=== PATIENT | male | born 1995 | race Caucasian/White ===

== ENCOUNTER 2016-10-23 20:59 | Emergency (ER) | payer OTHER ==
[2016-10-23 21:43] VITALS: BP 107/55; PULSE 104; TEMP 99.3; BMI 25.0
[2016-10-23] MEDS ORDERED: IBUPROFEN 400 MG TABLET (FP) PO ONE ×2 (22:11→22:28)
--- NOTE | 2016-10-23 23:01 | PDOC ---
History of Present Illness - General Chief Complaint: Sore Throat Stated Complaint: FEVER/SORE THROAT Time Seen by Provider: 10/23/16 21:48 History Source: Patient Exam Limitations: No Limitations - History of Present Illness Initial Comments: 10/23/16 22:58 20yo Male patient presents to ED c/o fever (104.0) yesterday night. Today chills , sore throat and h/a presented. He states he vomited x 2. Took Tylenol for fever. He denies any other complaints at this time. Timing/Duration: reports: yesterday Possible Cause: Yes: no prior episodes Modifying Factors: worse with: activity, albuterol inhaler, albuterol nebulizer , antibiotics, coughing, lying down, oxygen, rest, other Associated Symptoms: reports: fever/chills, headache, sore throat Past History - Travel Traveled outside of the country in the last 30 days: No Close contact w/someone who was outside of country & ill: No - Past Medical History Allergies/Adverse Reactions: Allergies Allergy/AdvReac Type Severity Reaction Status Date / Time chocolate flavor Allergy Verified 10/23/16 21:41 Penicillins Allergy Verified 10/23/16 21:41 PEANUTS Allergy Severe Itching Uncoded 10/23/16 21:41 SHRIMP Allergy Severe Itching Uncoded 10/23/16 21:41 Home Medications: Ambulatory Orders Azithromycin [Zithromax -] 250 mg PO DAILY #4 tablet 10/23/16 Asthma: Yes - Immunization History Immunization Up to Date: Yes - Psycho/Social/Smoking Cessation Hx Anxiety: Yes Suicidal Ideation: No Smoking Status: No Smoking History: Never smoked Have you smoked in the past 12 months: No Number of Cigarettes Smoked Daily: 4 If you are a former smoker, when did you quit?: aug 2013 Information on smoking cessation initiated: No Hx Alcohol Use: No Drug/Substance Use Hx: No Substance Use Type: None Respiratory Specific PMHX - Complaint Specific PMHX Angina: No Bronchitis: No Pneumonia: No Pulmonary Embolus: No TB (Tuberculosis): No Review of Systems - Review of Systems Able to Perform ROS?: Yes Is the patient limited Pashto proficient: No Constitutional: Yes: Chills, Fever HEENTM: Yes: Throat Pain. No: Nose Congestion, Throat Swelling, Difficulty Swallowing, Mouth Swelling Respiratory: No: Cough, Shortness of Breath, Stridor, Wheezing Cardiac (ROS): No: Chest Pain, Edema, Lightheadedness, Palpitations, Chest Tightness ABD/GI: Yes: Nausea, Vomiting. No: Diarrhea, Poor Appetite, Poor Fluid Intake : No: Dysuria Musculoskeletal: No: Back Pain Integumentary: No: Bruising, Erythema, Rash Neurological: Yes: Headache. No: Seizure, Ataxia, Dizziness All Other Systems: Reviewed and Negative *Physical Exam - Vital Signs Last Vital Signs Temp Pulse Resp BP Pulse Ox 99.3 F 104 H 20 107/55 97 10/23/16 21:41 10/23/16 21:41 10/23/16 21:41 10/23/16 21:41 10/23/16 21:41 - Physical Exam General Appearance: Yes: Nourished, Appropriately Dressed. No: Apparent Distress, Mild Distress, Moderate Distress, Severe Distress HEENT: positive: EOMI, FANTASMA, Normal ENT Inspection, Normal Voice, Symmetrical, TMs Normal, Pharynx Normal. negative: Pharyngeal Erythema, Tonsillar Exudate, Tonsillar Erythema, Nasal Congestion, Rhinorrhea, Sinus Tenderness, TM Bulging, TM Dull, TM Erythema Neck: positive: Trachea midline, Supple. negative: Lymphadenopathy (R), Lymphadenopathy (L) Respiratory/Chest: positive: Lungs Clear, Normal Breath Sounds. negative: Respiratory Distress, Accessory Muscle Use, Labored Respiration, Rapid RR Cardiovascular: positive: Regular Rhythm, Regular Rate. negative: Edema, JVD, Murmur Gastrointestinal/Abdominal: positive: Normal Bowel Sounds, Soft. negative: Distended, Guarding, Rebound, Tenderness Musculoskeletal: positive: Normal Inspection. negative: CVA Tenderness Extremity: positive: Normal Capillary Refill, Normal Inspection, Normal Range of Motion. 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 NML intact, Fully Oriented, Alert, Normal Mood/ Affect, Normal Response, Motor Strength 5/5 ED Treatment Course - ADDITIONAL ORDERS Additional order review: 10/23/16 22:25 Influenza Types A,B Antigen (AGAPITO) - Final Nasopharyngeal Swab - Final 10/23/16 22:25 Group A Strep Rapid Antigen - Final Throat - Medications Given in the ED: ED Medications Discontinued Medications Generic Name Dose Route Start Last Admin Trade Name Freq PRN Reason Stop Dose Admin Ibuprofen 800 mg 10/23/16 22:11 10/23/16 22:29 Motrin - PO 10/23/16 22:12 800 mg ONCE ONE Administration *DC/Admit/Observation/Transfer Diagnosis at time of Disposition: Acute viral pharyngitis - Discharge Dispostion Disposition: HOME Condition at time of disposition: Stable Admit: No - Prescriptions Prescriptions: Azithromycin [Zithromax -] 250 mg PO DAILY #4 tablet - Patient Instructions Printed Discharge Instructions: Viral Pharyngitis Additional Instructions: FOLLOW UP WITH YOUR PRIMARY CARE PROVIDER. TAKE MEDICATIONS PRESCRIBED. RETURN IF SYMPTOMS WORSEN OR ANY CONCERNS FOR FURTHER EVALUATION. MOTRIN OR TYLENOL FOR PAIN NEEDED. Print Language: AMHARIC
[2016-10-23] MEDS ORDERED: AZITHROMYCIN 250 MG TABLET (FP) PO ONE (23:45)
[2016-10-23] MEDS ORDERED: AZITHROMYCIN 250 MG TABLET (FP) ONE (23:48)
== END 2016-10-23 23:50 | disposition home or self-care (01) ==
LOC: JER 20:59
DX: J02.9 Acute pharyngitis, unspecified (principal)
CPT/HCPCS: 87070; 87430; 87804; 99281-25

== ENCOUNTER 2017-12-29 11:55 | Emergency (ER) | payer OTHER ==
[2017-12-29 12:10] VITALS: BP 137/88; PULSE 92; TEMP 98.8; BMI 20.7
[2017-12-29] MEDS ORDERED: ONDANSETRON 4 MG/2 ML VIAL IVPUSH ONE (12:13)
[2017-12-29] MEDS ORDERED: SODIUM CHLORIDE 1,000 ML IV STA ×2 (12:13→13:32)
[2017-12-29] MEDS ORDERED: PANTOPRAZOLE SODIUM 40 MG VIAL IVPUSH ONE (12:13)
--- NOTE | 2017-12-29 12:13 | PDOC ---
History of Present Illness - General Chief Complaint: Coffee Ground Emesis Stated Complaint: VOMITING Time Seen by Provider: 12/29/17 12:04 History Source: Patient Exam Limitations: No Limitations - History of Present Illness Initial Comments: 22 yo M history heavy alcohol use (used to drink 12 beers per day, but has stopped for the past month) presents with 3 week history of nausea, vomiting with coffee ground emesis. He has been evaluated at [facility] for the same, was able to schedule an appointment with a search manager on January 03. He has been taking protonix and zofran at home, but ran out of zofran. He has been vomiting all morning and was unable to keep anything down this morning. Denies fever, diarrhea, abd pain. Past History - Past Medical History Allergies/Adverse Reactions: Allergies Allergy/AdvReac Type Severity Reaction Status Date / Time chocolate flavor Allergy Verified 10/23/16 21:41 Penicillins Allergy Verified 10/23/16 21:41 PEANUTS Allergy Severe Itching Uncoded 10/23/16 21:41 SHRIMP Allergy Severe Itching Uncoded 10/23/16 21:41 Home Medications: Ambulatory Orders Azithromycin [Zithromax -] 250 mg PO DAILY #4 tablet 10/23/16 Ondansetron [Zofran Odt -] 4 mg SL TID PRN #21 od.tablet 12/29/17 Asthma: Yes COPD: No - Immunization History Immunization Up to Date: Yes - Suicide/Smoking/Psychosocial Hx Smoking Status: No Smoking History: Former smoker Have you smoked in the past 12 months: Yes Number of Cigarettes Smoked Daily: 4 If you are a former smoker, when did you quit?: T Information on smoking cessation initiated: Yes 'Breaking Loose' booklet given: 12/29/17 Hx Alcohol Use: Yes (12 PACK PER DAY) Drug/Substance Use Hx: Yes (HX OF DRUG USE, PILLS,HERION,COCAINE) Substance Use Type: Alcohol Review of Systems - Review of Systems Able to Perform ROS?: Yes Comments:: GENERAL/CONSTITUTIONAL: No fever or chills. No weakness. HEAD, EYES, EARS, NOSE AND THROAT: No change in vision. No ear pain or discharge. No sore throat. CARDIOVASCULAR: No chest pain or shortness of breath. RESPIRATORY: No cough, wheezing, or hemoptysis. GASTROINTESTINAL: +Nausea, vomiting. No diarrhea or constipation. GENITOURINARY: No dysuria, frequency, or change in urination. MUSCULOSKELETAL: No joint or muscle swelling or pain. No neck or back pain. SKIN: No rash NEUROLOGIC: No headache, vertigo, loss of consciousness, or change in strength/ sensation. ENDOCRINE: No increased thirst. No abnormal weight change. HEMATOLOGIC/LYMPHATIC: No anemia, easy bleeding, or history of blood clots. ALLERGIC/IMMUNOLOGIC: No hives or skin allergy. *Physical Exam - Vital Signs Last Vital Signs Temp Pulse Resp BP Pulse Ox 98.8 F 92 H 20 137/88 98 12/29/17 11:56 12/29/17 11:56 12/29/17 11:56 12/29/17 11:56 12/29/17 11:56 - Physical Exam Comments: GENERAL: Awake, alert, and fully oriented, in no acute distress HEAD: No signs of trauma EYES: PERRLA, EOMI, sclera anicteric, conjunctiva clear ENT: Auricles normal inspection, hearing grossly normal, nares patent, oropharynx clear without exudates. Dry mucosa NECK: Normal ROM, supple, no lymphadenopathy, JVD, or masses LUNGS: Breath sounds equal, clear to auscultation bilaterally. No wheezes, and no crackles HEART: Regular rate and rhythm, normal S1 and S2, no murmurs, rubs or gallops ABDOMEN: Soft, +mild diffuse tenderness, normoactive bowel sounds. No guarding , no rebound. No masses EXTREMITIES: Normal range of motion, no edema. No clubbing or cyanosis. No cords, erythema, or tenderness NEUROLOGICAL: Cranial nerves II through XII grossly intact. Normal speech, normal gait SKIN: Warm, Dry, normal turgor, no rashes or lesions noted. ED Treatment Course - LABORATORY CBC & Chemistry Diagram: 12/29/17 12:40 12/29/17 12:40 Medical Decision Making - Medical Decision Making 12/29/17 14:25 Pt able to tolerate PO challenge. He states he is feeling better. Stable for DC home. He has GI appointment in 5 days, I advised him to be sure to keep it. *DC/Admit/Observation/Transfer Diagnosis at time of Disposition: Nausea and vomiting Qualifiers: Vomiting type: unspecified Vomiting Intractability: non-intractable Qualified Code(s): R11.2 - Nausea with vomiting, unspecified - Discharge Dispostion Disposition: HOME Condition at time of disposition: Stable Decision to Admit order: No - Prescriptions Prescriptions: Ondansetron [Zofran Odt -] 4 mg SL TID PRN #21 od.tablet PRN Reason: Nausea And/Or Vomiting - Referrals - Patient Instructions Printed Discharge Instructions: DI for Vomiting -- Adult - Post Discharge Activity
[2017-12-29] MEDS ORDERED: ONDANSETRON 4 MG/2 ML VIAL ONE (12:35)
[2017-12-29] MEDS ORDERED: PANTOPRAZOLE SODIUM 40 MG VIAL ONE (12:36)
[2017-12-29 12:58] LABS: EOS % 0.5 % (0-4.5); HEMATOCRIT 48.9 % (35.4-49); HEMOGLOBIN 17.1 GM/dl (11.7-16.9); LYMPH % 8.8 % (8-40); MCH 29.2 pg (25.7-33.7); MCHC 34.9 g/dl (32.0-35.9); MEAN CELL VOLUME 83.6 fl (80-96); MEAN PLT VOLUME 7.8 fl (7.5-11.1); MONO % 5.3 % (3.8-10.2); NEUT % 84.4 % (42.8-82.8); PLATELET COUNT 279 K/MM3 (134-434); RBC 5.85 M/mm3 (4.00-5.60); RDW 12.9 % (11.9-15.9)
[2017-12-29 13:19] LABS: ALBUMIN 4.9 g/dl (3.5-5.0); ALK PHOS 72 U/L (32-92); ANION GAP 6 (8-16); BILIRUBIN,TOTAL 1.2 mg/dl (0.2-1.0); BLOOD UREA NITROGEN 15 mg/dl (7-18); CALCIUM 9.5 mg/dl (8.4-10.2); CHLORIDE 100 mmol/L (98-107); CO2 32 mmol/L (22-28); CREATININE 1.1 mg/dl (0.6-1.3); GLUCOSE,RANDOM 101 mg/dl (74-106); POTASSIUM 3.7 mmol/L (3.5-5.1); SGOT/AST 21 U/L (10-42); SGPT/ALT 18 U/L (10-40); SODIUM 138 mmol/L (136-145)
[2017-12-29 13:25] LABS: INR 1.17 (0.82-1.09); PROTHROMBIN TIME (PATIENT) 13.1 SEC (10.2-13.0)
[2017-12-29 13:57] LABS: LIPASE 105 U/L (73-393)
== END 2017-12-29 14:44 | disposition home or self-care (01) ==
LOC: FER 11:55
PROC: 3E033GC Introduction of Other Therapeutic Substance into Peripheral Vein, Percutaneous Approach (ICD-10-PCS; principal; 2017-12-29)
PROC: 3E0337Z Introduction of Electrolytic and Water Balance Substance into Peripheral Vein, Percutaneous Approach (ICD-10-PCS; 2017-12-29)
DX: R11.2 Nausea with vomiting, unspecified (principal); F10.21 Alcohol dependence, in remission; Z88.5 Allergy status to narcotic agent; Z91.010 Allergy to peanuts; Z91.013 Allergy to seafood; Z87.891 Personal history of nicotine dependence
CPT/HCPCS: 36415; 80053; 83690; 85025; 85610; 86850; 86900; 86901; 99282-25; J7030

== ENCOUNTER 2018-03-08 13:23 | Emergency (ER) | payer OTHER ==
[2018-03-08 13:42] VITALS: BP 125/72; PULSE 93; TEMP 99.1; BMI 22.7
[2018-03-08] MEDS ORDERED: PANTOPRAZOLE SODIUM 40 MG in SODIUM CHLORIDE 100 ML IVPB ONE (13:45)
[2018-03-08] MEDS ORDERED: ONDANSETRON 4 MG/2 ML VIAL IVPB ONE (13:45)
[2018-03-08] MEDS ORDERED: SODIUM CHLORIDE 1,000 ML IV STA (13:46)
--- NOTE | 2018-03-08 13:46 | PDOC ---
History of Present Illness - General Chief Complaint: Vomiting Blood Stated Complaint: VOMITING BLOOD Time Seen by Provider: 03/08/18 13:36 - History of Present Illness Initial Comments: 03/08/18 13:47 If complaint: Hematemesis History of present illness: Patient states that he awoke this morning, felt nauseated, threw up multiple times, noticing dark red blood with some clots. Similar episode 2 months ago, no specific diagnosis, treated in the emergency room and referred to a specialist, but did not follow-up. Also mild burning pain in the epigastrium. Consumes approximately 24 cans of beer each day after work. Has been drinking heavily for several years. Denies tobacco or nonprescription drugs. No other abdominal disease including liver disease, hepatitis, appendicitis, or cholecystitis. Review of systems: As noted above. In addition, bowel movements are normal, no diarrhea, no melena, medium brown in appearance. His urine however is dark in color but not bloody. No recent fever/chills, URI symptoms, sore throat, cough, chest pain, shortness of breath, visual or focal neurologic symptoms, unsteadiness of gait, lightheadedness, dizziness, or ataxia. No rashes. Claims that he eats normally, appetite being good, even after he drinks. Past medical history: Significant only for intermittent epigastric discomfort, dyspepsia, and hematemesis as noted above. No surgeries. 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 Physical exam: Alert and oriented well-developed well-nourished no acute distress cheerful and cooperative No pallor or icterus. No tremulousness PERRLA, fundi benign, ENT clear Neck supple without bruit mass or nodes Chest clear with full breath sounds bilaterally CV regular without murmur rub or gallop pulses full and symmetric no JVD or edema no bruits Abdomen nondistended. Bowel sounds normal. Soft without mass tenderness organomegaly. Specifically, the liver is not enlarged and there edges not palpated Extremities no CCE Neurological C2 to 12 intact. Strength full and symmetric. No focal sensory or motor deficits. Gait stable and unimpaired. No orthostatic hypotensive changes. No palmar erythema, telangiectasias, or asterixis Impression: Probable alcoholic gastritis with recurrent hematemesis, beginning this morning. No sign of hypovolemia. No sign of significant blood loss. No sign of liver toxicity on examination Plan: CBC, chemistries, and urinalysis. IV fluids, Protonix, and Zofran. Further evaluation and treatment depending on results Past History - Past Medical History Allergies/Adverse Reactions: Allergies Allergy/AdvReac Type Severity Reaction Status Date / Time Penicillins Allergy Severe Verified 03/08/18 13:27 chocolate flavor Allergy Mild Verified 03/08/18 13:25 PEANUTS Allergy Severe Itching Uncoded 03/08/18 13:26 SHRIMP Allergy Intermediate Itching Uncoded 03/08/18 13:27 Home Medications: Ambulatory Orders NK [No Known Home Medication] 03/08/18 Asthma: Yes COPD: No - Immunization History Immunization Up to Date: Yes - Suicide/Smoking/Psychosocial Hx Smoking Status: No Smoking History: Former smoker Have you smoked in the past 12 months: Yes Number of Cigarettes Smoked Daily: 4 If you are a former smoker, when did you quit?: T 'Breaking Loose' booklet given: 12/29/17 Hx Alcohol Use: Yes (12 PACK PER DAY) Drug/Substance Use Hx: Yes (HX OF DRUG USE, PILLS,HERION,COCAINE) Substance Use Type: Alcohol ED Treatment Course - LABORATORY CBC & Chemistry Diagram: 03/08/18 13:52 03/08/18 13:52 Medical Decision Making - Medical Decision Making 03/08/18 14:46 H&H are normal. LFTs are normal. Mildly elevated white count without sign of infection Patient is much improved after intravenous fluids, Zofran, and Protonix. There is no pain or burning in the epigastrium. There is been no further nausea or vomiting. Discharge with his mother, lengthy discussion with both regarding the dangers of alcohol, continue Protonix and follow up with seat trimmer as discussed *DC/Admit/Observation/Transfer Diagnosis at time of Disposition: Gastritis Qualifiers: Gastritis type: unspecified gastritis Chronicity: acute Gastritis bleeding: with bleeding Qualified Code(s): K29.01 - Acute gastritis with bleeding - Discharge Dispostion Disposition: HOME Condition at time of disposition: Stable Decision to Admit order: No - Referrals Referrals: Candido Caceres MD [Staff Physician] - 2 Days - Patient Instructions Printed Discharge Instructions: DI for Alcoholic Gastritis Additional Instructions: Slowly withdraw yourself from alcohol or you risk life-threatening bleeding or liver damage. Medication as prescribed See seat trimmer as recommended for follow-up. Return to the hospital if there is heavy bleeding or other signs of blood loss, such as lightheadedness, dizziness, chest pain, shortness of breath, or increased abdominal pain. - Post Discharge Activity
[2018-03-08] MEDS ORDERED: ONDANSETRON 4 MG/2 ML VIAL ONE (13:55)
[2018-03-08] MEDS ORDERED: PANTOPRAZOLE SODIUM 40 MG VIAL ONE (13:55)
[2018-03-08 14:12] LABS: URINE APPEARANCE Clear; URINE BILIRUBIN 1+ (NEGATIVE); URINE COLOR Amber; URINE GLUCOSE (UA) Negative (NEGATIVE); URINE KETONE 1+ (NEGATIVE); URINE LEUK ESTERASE Negative (NEGATIVE); URINE NITRITE Negative (NEGATIVE)
[2018-03-08 14:13] LABS: URINE PROTEIN 2+ (NEGATIVE)
[2018-03-08 14:14] LABS: BASO % 0.3 % (0-2.0); EOS % 0.4 % (0-4.5); HEMATOCRIT 46.5 % (35.4-49); LYMPH % 4.4 % (8-40); MCH 29.4 pg (25.7-33.7); MCHC 34.5 g/dl (32.0-35.9); MEAN CELL VOLUME 85.3 fl (80-96); MEAN PLT VOLUME 8.6 fl (7.5-11.1); MONO % 6.4 % (3.8-10.2); NEUT % 88.5 % (42.8-82.8); PLATELET COUNT 248 K/MM3 (134-434); RBC 5.45 M/mm3 (4.00-5.60); RDW 12.2 % (11.9-15.9); WHITE BLOOD COUNT 12.9 K/mm3 (4.0-10.8)
[2018-03-08 14:22] LABS: ALBUMIN 4.6 g/dl (3.5-5.0); ALK PHOS 80 U/L (32-92); ANION GAP 9 MMOL/L (8-16); BLOOD UREA NITROGEN 12 mg/dl (7-18); CHLORIDE 99 mmol/L (98-107); CO2 27 mmol/L (22-28); CREATININE 0.9 mg/dl (0.6-1.3); GLUCOSE,RANDOM 111 mg/dl (74-106); POTASSIUM 3.6 mmol/L (3.5-5.1); SGOT/AST 32 U/L (10-42); SGPT/ALT 22 U/L (10-40); SODIUM 135 mmol/L (136-145); TOT PROT 7.7 g/dl (6.4-8.3)
[2018-03-08 14:40] LABS: EPI CELLS RARE /HPF; URINE RBC 0-2 /hpf (0-3); URINE WBC 0-1 (0-2)
== END 2018-03-08 15:27 | disposition home or self-care (01) ==
LOC: FER 13:23
PROC: 3E033GC Introduction of Other Therapeutic Substance into Peripheral Vein, Percutaneous Approach (ICD-10-PCS; principal; 2018-03-08)
PROC: 3E0337Z Introduction of Electrolytic and Water Balance Substance into Peripheral Vein, Percutaneous Approach (ICD-10-PCS; 2018-03-08)
DX: K29.01 Acute gastritis with bleeding (principal); Z87.891 Personal history of nicotine dependence; J45.909 Unspecified asthma, uncomplicated
CPT/HCPCS: 36415; 80053; 81003; 81015; 85025; 99282-25; J7030

== ENCOUNTER 2020-04-04 12:21 | Emergency (ER) | payer OTHER ==
[2020-04-04 12:37] VITALS: BP 138/77; PULSE 67; TEMP 98; BMI 24.3
[2020-04-04] MEDS ORDERED: FAMOTIDINE 20 MG TABLET PO ONE (12:41)
[2020-04-04] MEDS ORDERED: predniSONE 20 MG TABLET (UD) PO ONE (12:41)
[2020-04-04] MEDS ORDERED: diphenhydrAMINE HCL 25 MG CAPSULE (FP) PO ONE ×2 (12:41→12:47)
[2020-04-04] MEDS ORDERED: FAMOTIDINE 20 MG TABLET ONE (12:47)
[2020-04-04] MEDS ORDERED: predniSONE 20 MG TABLET (UD) ONE (12:48)
--- NOTE | 2020-04-04 12:48 | PDOC ---
History of Present Illness - General Chief Complaint: Poison Reserve,Poison Sparkle Exposure Stated Complaint: RASH ON FACE, ARMS, LEGS History Source: Patient Exam Limitations: No Limitations - History of Present Illness Initial Comments: 04/04/20 12:40 24YOM without PMH p/w 2 days of worsening itching and redness to his entire body after known poison sparkle exposure while working outside 2 days ago. States he did wash himself off thoroughly but developed a red itchy/burning rash with hives. States it is on his face, neck, trunk (front and back), and all four extremities but spares his groin. He denies any inhalation of debris, and has not had any wheezing, SOB, throat closing, lightheadedness, nausea, vomiting, diarrhea, severe skin pain or pus drainage or signs of infection, f/c, or other symptoms. He has been using benadryl cream without relief, also took benadryl pill last night with partial relief. Past History - Medical History Allergies/Adverse Reactions: Allergies Allergy/AdvReac Type Severity Reaction Status Date / Time Penicillins Allergy Severe Verified 03/08/18 13:27 chocolate flavor Allergy Mild Verified 03/08/18 13:25 PEANUTS Allergy Severe Itching Uncoded 03/08/18 13:26 SHRIMP Allergy Intermediate Itching Uncoded 03/08/18 13:27 Home Medications: Ambulatory Orders Clobetasol Propionate/Emoll [Clobetasol Emollient 0.05% Crm] 30 gm TP BID 7 Days #1 cream..g. 04/04/20 Famotidine [Pepcid] 20 mg PO DAILY #7 tablet 04/04/20 Prednisone [Prednisone 50 MG TABLETS] 50 mg PO DAILY #5 tablet 04/04/20 Asthma: Yes COPD: No - Immunization History Immunization Up to Date: Yes - Psycho-Social/Smoking History Smoking Status: No Smoking History: Never smoked Have you smoked in the past 12 months: No Number of Cigarettes Smoked Daily: 4 If you are a former smoker, when did you quit?: T Information on smoking cessation initiated: No 'Breaking Loose' booklet given: 12/29/17 - Substance Abuse Hx (Audit-C & DAST Scrn) How often the patient has a drink containing alcohol: Monthly or less Number of drinks the patient has on a typical day: 1 or 2 How often the patient has six or more drinks on one occasion: Never Score: In Men: 4 or > Positive; In Women: 3 or > Positive: 1 Screen Result (Pos requires Nsg. Audit-10AR): Negative In the last yr the pt used illegal drug/Rx for NonMed reason: No Score: Yes response is considered Positive: 0 Screen Result (Positive result requires Nsg. DAST-10): Negative Review of Systems - Review of Systems Able to Perform ROS?: Yes Comments:: GEN: no fever, chills, malaise, or generalized weakness HEENT: no ear pain, congestion, sore throat, vision change, or eye pain CV: no chest pain, palpitations, lightheadedness, syncope, or edema RESP: no SOB, wheezing, or cough GI: no abdominal pain, nausea, vomiting, diarrhea, constipation, or rectal bleed : no dysuria, hematuria, or discharge MSK: no muscle weakness or pain, no joint swelling or pain NEURO: no headache, vertigo, numbness, tingling, or focal weakness PSYCH: no SI, HI, or behavior change SKIN: itchy and burning rash and lesions, no unexplained bruises ROS otherwise negative except as noted in HPI *Physical Exam - Vital Signs Last Vital Signs Temp Pulse Resp BP Pulse Ox 98 F 67 18 138/77 99 04/04/20 12:22 04/04/20 12:22 04/04/20 12:22 04/04/20 12:22 04/04/20 12:22 - Physical Exam GENERAL: well-appearing, A/Ox4, no distress, answers questions appropriately, appears slightly uncomfortable with rash on face HEENT: PERRLA, EOMI, moist mucous membranes NECK/BACK: no midline ttp, no spinal step-off or deformity, no hematoma, full RO M, neck supple CARDIOVASCULAR: regular rate/rhythm, no MGR, strong peripheral pulses, capillary refill <2 seconds, extremities wwp, no edema LUNGS/RESPIRATORY: no respiratory distress, CTAB GI/ABDOMEN: symmetric [id number], normoactive BS, soft, no ttp, no midline pulsatile masses : no CVA tenderness MSK/EXTREMITIES: no muscle atrophy, no acute deformity SKIN: all four extremities, anterior and posterior trunk (inferior>superior), face, and circumferential neck with pruritic erythematous rash with superficial excoriations, with occasional scattered overlying vesicles, in streak-like configurations, no genital involvement, few ruptured vesicles on bilateral wrists, no significant skin tenderness, no purulent drainage, no significant swelling NEUROLOGICAL: GCS 15, CN II-XII grossly intact, 5/5 strength proximally and distally, no facial droop Medical Decision Making - Medical Decision Making 24YOM presents with pruritic burning rash after poison sparkle exposure. Initial Vital Signs Temp Pulse Resp BP Pulse Ox 98 F 67 18 138/77 99 04/04/20 12:22 04/04/20 12:22 04/04/20 12:22 04/04/20 12:22 04/04/20 12:22 DDX IBNLT: most likely poison sparkle or poison oak dermatitis given the streaking pattern of pruritic erythema and the history. Possibly other contact dermatitis- type allergic reaction. Less likely eczema, psoriasis, or other chronic dermatitis given lack of prior history. Very unlikely to be any other more serious etiology i.e. SJS/TEN, bullous pemphigoid, pemphigus vulgaris, heat or chemical burn, etc. Provider Orders Category Date Time Status Diphenhydramine HCl [Benadryl -] Medication 04/04/20 12:47 Discontinued 25 mg PO .STK-MED ONE Diphenhydramine HCl [Benadryl -] Medication 04/04/20 12:41 Discontinued 25 mg PO ONCE ONE Famotidine [Pepcid -] Medication 04/04/20 12:47 Discontinued 20 mg .ROUTE .STK-MED ONE Famotidine [Pepcid -] Medication 04/04/20 12:41 Discontinued 20 mg PO ONCE ONE predniSONE [Deltasone -] Medication 04/04/20 12:48 Discontinued 60 mg .ROUTE .STK-MED ONE predniSONE [Deltasone -] Medication 04/04/20 12:41 Discontinued 60 mg PO ONCE ONE Medications Discontinued Medications Generic Name Dose Route Start Last Admin Trade Name Freq PRN Reason Stop Dose Admin Diphenhydramine HCl 25 mg 04/04/20 12:41 04/04/20 12:51 Benadryl - PO 04/04/20 12:42 25 mg ONCE ONE Administration Diphenhydramine HCl Confirm 04/04/20 12:47 Benadryl - Administered 10/02/20 12:48 Dose 25 mg PO .STK-MED ONE Famotidine 20 mg 04/04/20 12:41 04/04/20 12:51 Pepcid - PO 04/04/20 12:42 20 mg ONCE ONE Administration Famotidine Confirm 04/04/20 12:47 Pepcid - Administered 04/04/20 12:48 Dose 20 mg .ROUTE .STK-MED ONE Prednisone 60 mg 04/04/20 12:41 04/04/20 12:51 Deltasone - PO 04/04/20 12:42 60 mg ONCE ONE Administration Prednisone Confirm 04/04/20 12:48 Deltasone - Administered 04/04/20 12:49 Dose 60 mg .ROUTE .STK-MED ONE This Pt has gotten significant relief of symptoms while in the ED. On last reassessment, vitals are wnl, pain is reasonably controlled, and exam is benign. History and clinical exam is not concerning for emergency-level pathology at this time. This Pt is appropriate for discharge with close outpatient follow up. He was miserable on arrival to the ED and is a good candidate for PO steroids, also clobetasol, and he is instructed on using the clobetasol for a maximum of 7 days, and never on the face or groin or skin folds. He is comfortable with this plan and will follow up with PCP in 1-3 days. Specific return precautions are discussed and they will come back to the ER if necessary Discharge - Discharge Information Problems reviewed: Yes Clinical Impression/Diagnosis: Allergic dermatitis due to poison sparkle Condition: Stable Disposition: HOME - Admission No - Additional Discharge Information Prescriptions: Clobetasol Propionate/Emoll [Clobetasol Emollient 0.05% Crm] 30 gm TP BID 7 Days #1 cream..g. Famotidine [Pepcid] 20 mg PO DAILY #7 tablet Prednisone [Prednisone 50 MG TABLETS] 50 mg PO DAILY #5 tablet - Follow up/Referral Referrals: [facility] [Provider Group] - Patient Discharge Instructions Patient Printed Discharge Instructions: DI for Poison Sparkle Allergy Additional Instructions: You were seen in the ER for an itchy red rash due to poison sparkle/poison oak dermatitis. We did an exam and gave you medications to help with the symptoms, and at this time we do not see any signs of infection. After our assessment, we do not believe you are having a medical emergency at this time, and we believe you are safe to go home. Please tile picker and take the medication we are sending to your pharmacy. The instructions are listed below. Please follow up with your primary care provider in 1-3 days. (We are giving you referral information.) Call their clinic, tell them you were seen in the ER, and tell them you need a follow-up. If you have any new or worsening symptoms, please come back to the ER at any time (24 hours a day). Especially come back if you have any signs of skin infection like pain, warmth, or drainage of pus. Also come back if you have throat closing, wheezing, difficulty breathing, vomiting, room-spinning d izziness, or any other emergency symptoms. If you are having severe or life threatening symptoms, or symptoms that make it unsafe to drive or have someone drive you, please call 911. Prednisone 50 mg tabs: take once a day for 5 days. Pepcid 20 mg tabs: take once a day for 7 days. Clobetasol 0.05% cream: Use twice daily for a max of 7 days. Do not use on face, groin, or skin folds. If you need extra itch relief, you can use Benadryl 25 or 50 mg as well, which is [id number]. If you have eye tearing, you can use anti-allergy eye drops, but don't rub the eyes. - Post Discharge Activity
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
== END 2020-04-04 13:03 | disposition home or self-care (01) ==
LOC: FER 12:21
DX: L23.7 Allergic contact dermatitis due to plants, except food (principal)
CPT/HCPCS: 99284-25

== ENCOUNTER 2021-03-16 17:20 | Emergency (ER) | payer SELFPAY ==
[2021-03-16 17:44] VITALS: BP 147/91; PULSE 80; TEMP 98; BMI 23.6
[2021-03-16] MEDS ORDERED: diphenhydrAMINE HCL 25 MG CAPSULE (FP) PO ONE ×2 (18:21→18:29)
[2021-03-16] MEDS ORDERED: DEXAMETHASONE SOD PHOSPHATE 10 MG/1 ML VIAL IM ONE (18:21)
[2021-03-16] MEDS ORDERED: DEXAMETHASONE SOD PHOSPHATE 10 MG/1 ML VIAL ONE (18:28)
== END 2021-03-16 18:51 | disposition home or self-care (01) ==
LOC: JERFT 17:20 → JER 17:20 → JERFT 18:51
PROC: 3E023GC Introduction of Other Therapeutic Substance into Muscle, Percutaneous Approach (ICD-10-PCS; principal; 2021-03-16)
DX: L23.7 Allergic contact dermatitis due to plants, except food (principal)
CPT/HCPCS: 99284-25; J1100